=== PATIENT | male | born 1965 | race Caucasian/White ===

== ENCOUNTER 2017-09-23 15:50 | Emergency (ER) | payer OTHER ==
[~2017-09-23] VITALS: Ht 177.8 cm; Wt 70.3 kg
--- NOTE | 2017-09-23 16:03 | ED MVC/FALL/TRAUMA COMPLAINT ---
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 + BREATH SOUND TO AFFECTED SIDE. DENIES HEADSTRIKE. ALSO REPORTS HIP PAIN. ABLE TO AMBULATE SLOWLY Triage Nurses Notes Reviewed? 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 The floorboards scraped up his right side into his chest. Patient denies hitting his head and there was no loss of consciousness. Patient is complaining of 8 out of 10 sharp stabbing pain to his right side, right upper quadrant and right lower chest. The pain increases with movement and deep breaths. Patient feels short of breath because the pain. Patient denies any coughing. There are no fevers or chills. Past History Travel History Traveled to [place] past 21 day No Medical History Any Pertinent Medical History? none Surgical History Surgical History: non-contributory Psychosocial History What is your primary language [place]an Tobacco Use: Never used ETOH Use: occasional use Illicit Drug Use: denies illicit drug use Family History Hx Contributory? No Review of Systems Review of Systems Constitutional: Reports: no symptoms. Eyes: Reports: no symptoms. Ears, Nose, Throat, Mouth: Reports: no symptoms. Respiratory: Reports: see HPI, short of breath. Cardiovascular: Reports: see HPI, chest pain. Gastrointestinal/Abdominal: Reports: see HPI, abdominal pain. Genitourinary: Reports: no symptoms. Musculoskeletal: Reports: no symptoms. Skin: Reports: no symptoms. Neurological/Psychological: Reports: no symptoms. All Other Systems: Reviewed and Negative Physical Exam Physical Exam General Appearance: well developed/nourished, alert, awake, moderate distress Head: atraumatic, normal appearance Eyes: Bilateral: PERRL, EOMI. Ears, Nose, Throat, Mouth: hearing grossly normal, moist mucous membrane Neck: normal inspection, supple, full range of motion, no midline tenderness Respiratory: normal breath sounds, no respiratory distress, lungs clear, TENDER TO PALP Cardiovascular: regular rate/rhythm, normal peripheral pulses Gastrointestinal: normal bowel sounds, soft, tenderness (RUQ), ABRASION TO RUQ Back: normal inspection, normal range of motion Extremities: normal range of motion, pelvis stable Neurologic/Psych: no motor/sensory deficits, awake, alert, oriented x 3, normal gait, normal mood/affect Skin: normal color, warm/dry Core Measures ACS in differential dx? No CVA/TIA Diagnosis No Sepsis Present: No Sepsis Focused Exam Completed? No Progress Differential Diagnosis: abd injury, pnemothorax Plan of Care: Orders Procedure Date/time Status LIPASE 09/23 1603 Complete COMPREHENSIVE METABOLIC PANEL 09/23 1603 Complete CBC WITHOUT DIFFERENTIAL 09/23 1603 Complete AMYLASE 09/23 1603 Complete Laboratory Tests 09/23/17 1615: Anion Gap 7, Estimated GFR > 60, BUN/Creatinine Ratio 19.0, Glucose 90, Calcium 9.4, Total Bilirubin 0.3, AST 73 H, ALT 65, Alkaline Phosphatase 65, Total Protein 7.5, Albumin 4.5, Globulin 3.0, Albumin/Globulin Ratio 1.5, Amylase 68, Lipase 178, CBC w Diff NO MAN DIFF REQ, RBC 4.21 L, MCV 98.0 H, MCH 33.3 H, MCHC 34.0, RDW 13.2, MPV 8.3, Gran % 67.8, Lymphocytes % 25.5, Monocytes % 5.4, Eosinophils % 1.0, Basophils % 0.3, Absolute Granulocytes 5.1, Absolute Lymphocytes 1.9, Absolute Monocytes 0.4, Absolute Eosinophils 0.1, Absolute Basophils 0 Diagnostic Imaging: Viewed by Me: CT Scan. Discussed w/RAD: CT Scan. Radiology Impression: PATIENT: CECILIA CHAWLA PRESENT AGE: 52 PATIENT ACCOUNT NO: [id number] : 66 LOCATION: [facility] ORDERING PHYSICIAN: Dex Chester MD SERVICE DATE: 09/23/17-1603 EXAM TYPE: CAT - CT ABD & PELVIS W IV CONTRAST EXAMINATION: CT ABDOMEN AND PELVIS WITH CONTRAST CLINICAL INFORMATION: Abdominal pain status-post trauma. COMPARISON: None TECHNIQUE: Multidetector volumetric imaging was performed of the abdomen and pelvis following IV administration of 95 mL of Optiray 320 intravenous contrast. Sagittal and coronal reformatted images were obtained on the technologist's workstation. DLP: 272.09 mGy-cm FINDINGS: LUNG BASES: The visualized lung bases are unremarkable. There is mild dependent hypoaeration. LIVER, GALLBLADDER, AND BILIARY TREE: The liver is normal in size, shape, and attenuation. No focal hepatic lesion or biliary ductal dilatation is present. The gallbladder is unremarkable with no evidence of radiopaque gallstones, gallbladder wall thickening, or obvious pericholecystic inflammatory changes. PANCREAS: Unremarkable. SPLEEN: Unremarkable. ADRENAL GLANDS: Unremarkable. KIDNEYS AND URETERS: The kidneys are normal in size, shape, and attenuation. No hydronephrosis, hydroureter, or calculi seen. No perinephric stranding. BLADDER: Unremarkable. GASTROINTESTINAL TRACT: The small and large bowel are unremarkable. The appendix is unremarkable. ABDOMINAL WALL: No significant hernia is appreciated. LYMPH NODES: Normal. VASCULAR: Unremarkable. PELVIC VISCERA: The prostate and seminal vesicles are unremarkable. FREE FLUID: None. No pneumoperitoneum is seen. OSSEOUS STRUCTURES: There is marked degenerative disc disease L4-L5, with vacuum phenomenon. There has been prior surgery at L5- S1. Left iliac bone donor site noted. No acute or aggressive osseous abnormality seen. IMPRESSION: 1. No acute traumatic finding seen. 2. Degenerative and postoperative changes are seen in the lumbosacral spine. Please correlate with patient's past surgical history. DICTATED BY: Sloan Mccabe MD DATE/TIME DICTATED:09/23/171733 IMPROVEMENT SPEC:[id number] DATE/TIME TRANSCRIBED:1733 CONFIDENTIAL, DO NOT COPY WITHOUT APPROPRIATE AUTHORIZATION. < Electronically signed in Other Vendor System> SIGNED BY: Sloan Mccabe MD 09/23/17 6822 Departure Departure Disposition: HOME OR SELF CARE Condition: Stable Clinical Impression Primary Impression: Chest wall pain Secondary Impressions: Abdominal pain, unspecified site Additional Instructions: take it easy take percocet as needed forpain percocet isvery constipating anditis sedating so do not drive after taking it return if symptoms worsen or for any concerns Departure Forms: Customer Survey General Discharge Information Prescriptions: Current Visit Scripts Oxycodone HCl/Acetaminophen (Percocet 5-325 MG Tablet) 1-2 TAB PO Q6P PRN PAIN #20 TAB
[2017-09-23 16:24] LABS: ABSOLUTE BASOPHIL COUNT 0 /CUMM (0.0-0.2); ABSOLUTE EOSINOPHIL COUNT 0.1 /CUMM (0.0-0.7); ABSOLUTE GRANULOCYTE CT 5.1 /CUMM (1.4-6.5); ABSOLUTE LYMPH COUNT 1.9 /CUMM (1.2-3.4); ABSOLUTE MONOCYTE COUNT 0.4 /CUMM (0.10-0.60); BASOPHIL % 0.3 % (0.0-2.0); GRANULOCYTE % 67.8 % (42.2-75.2); HEMATOCRIT 41.3 % (42-52); MEAN CORPUSCULAR HGB 33.3 PG (27.0-31.0); MEAN PLATELET VOLUME 8.3 FL (7.4-10.4); PLATELET COUNT 267 /CUMM (130-400); RBC DISTRIBUTION WIDTH 13.2 % (11.5-14.5); RED BLOOD CELL CT 4.21 /CUMM (4.70-6.10); WHITE BLOOD CELL COUNT 7.5 /CUMM (4.8-10.8)
--- NOTE | 2017-09-23 17:50 | CT SCAN REPORT ---
EXAMINATION: CT ABDOMEN AND PELVIS WITH CONTRAST CLINICAL INFORMATION: Abdominal pain status-post trauma. COMPARISON: None TECHNIQUE: Multidetector volumetric imaging was performed of the abdomen and pelvis following IV administration of 95 mL of Optiray 320 intravenous contrast. Sagittal and coronal reformatted images were obtained on the technologist's workstation. DLP: 272.09 mGy-cm FINDINGS: LUNG BASES: The visualized lung bases are unremarkable. There is mild dependent hypoaeration. LIVER, GALLBLADDER, AND BILIARY TREE: The liver is normal in size, shape, and attenuation. No focal hepatic lesion or biliary ductal dilatation is present. The gallbladder is unremarkable with no evidence of radiopaque gallstones, gallbladder wall thickening, or obvious pericholecystic inflammatory changes. PANCREAS: Unremarkable. SPLEEN: Unremarkable. ADRENAL GLANDS: Unremarkable. KIDNEYS AND URETERS: The kidneys are normal in size, shape, and attenuation. No hydronephrosis, hydroureter, or calculi seen. No perinephric stranding. BLADDER: Unremarkable. GASTROINTESTINAL TRACT: The small and large bowel are unremarkable. The appendix is unremarkable. ABDOMINAL WALL: No significant hernia is appreciated. LYMPH NODES: Normal. VASCULAR: Unremarkable. PELVIC VISCERA: The prostate and seminal vesicles are unremarkable. FREE FLUID: None. No pneumoperitoneum is seen. OSSEOUS STRUCTURES: There is marked degenerative disc disease L4-L5, with vacuum phenomenon. There has been prior surgery at L5-S1. Left iliac bone donor site noted. No acute or aggressive osseous abnormality seen. IMPRESSION: 1. No acute traumatic finding seen. 2. Degenerative and postoperative changes are seen in the lumbosacral spine. Please correlate with patient's past surgical history.
[2017-09-23] MEDS ORDERED: PERCOCET 5-3251 EACH PO (18:10)
[2017-09-23 18:28] VITALS: BP 117/74
== END 2017-09-23 18:30 ==
LOC: ERH 15:50
PROVIDERS: Emergency Medicine
DX: R07.89 Other chest pain (principal); R10.11 Right upper quadrant pain
CPT/HCPCS: 74177